=== PATIENT | female | born 1935 | race Caucasian/White ===

== ENCOUNTER 2018-08-30 15:40 | Emergency (ER) | payer MEDICARE ==
[~2018-08-30] VITALS: Ht 142.2 cm; Wt 50.0 kg
[~2018-08-30 15:40] MED LIST: TESSALON PER100 MG PO; ZITHROMAX250 MG PO
[2018-08-30] MEDS ORDERED: MONTELUKAST SOD10 MG PO (18:36)
[2018-08-30] MEDS ORDERED: IBUPROFEN600 MG PO (18:36)
[2018-08-30] MEDS ORDERED: ESOMEPRAZOLE MA40 MG PO (18:36)
[2018-08-30] MEDS ORDERED: GUAIASORB DM1 ML PO (19:59)
[2018-08-30] MEDS ORDERED: LEVAQUIN750 MG PO ×2 (20:07→20:14)
[2018-08-30 20:25] VITALS: BP 144/74
== END 2018-08-30 20:25 | disposition home or self-care (01) ==
LOC: ED 15:40
DX: J18.9 Pneumonia, unspecified organism (principal)